=== PATIENT | male | born 1990 | race Caucasian/White ===

== ENCOUNTER → 2022-12-18 13:15 | Outpatient (BNV) | payer SELFPAY | PROVIDERS: Visit Provider Psychiatry & Neurology Psychiatry | DX: F31.75 Bipolar disorder, in partial remission, most recent episode depressed (principal); R41.840 Attention and concentration deficit; F19.20 Other psychoactive substance dependence, uncomplicated | CPT/HCPCS: 90792; 99213 ==

== ENCOUNTER 2023-01-11 12:45 | Outpatient (RCR) | payer OTHER, SELFPAY ==
--- NOTE | 2022-12-18 10:16 | P.HPPSP_ITS ---
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 He is known to me. He has history of bipolar disorder with episodes of depression and hypomania, accompanied by classic symptoms. He was previously on Trileptal when I was seeing him at [facility] and did very well on it, up to 1200 mg and then was on no medications for several years with mood fluctuations. In July 2021 he decided that he would he needed help again and started looking for prescriber and was put on Vraylar, then Latuda, then Geodon and had side effects to all of a man with Geodon had S if agile spasms and difficulty eating and then on Zyprexa. He is currently on Zyprexa 7.5 mg on which he feels a little sedated. In 2018 he was on lithium on which he did very well but had a lot of tremor and acne. He has had 1 hospitalization in 2018. He did useKratom, occasional cocaine and marijuana as a way of self medicating but he recently stopped everything except the marijuana which he is decreasing and stopping. No suicidal history. He does have history of self-destructive behaviors such as punching himself, hitting himself. Past Psychiatric History: Outpatient and 1 inpatient hospitalization. He currently sees his therapist of many years PMFSH Narrative: Scoliosis Family History: Positive for probable bipolar disorder in his mother who was in 2017 and a brother who committed suicide in 2011 Social History: Guillermo is 1 of 2 siblings. His mother is and his father is living and he lives with him. He denies any history of abuse growing up. He dropped out of 10th grade but has his GED. He currently works at a [employer]. No marriages and no children. Substance History: Marijuana,kratom and occasional cocaine Trauma History: None Meds/Allergies Allergies Allergies Allergy/AdvReac Type Severity Reaction Status Date / Time amoxicillin Allergy Mild Rash Verified 12/18/22 09:56 Mental Status Exam Mental Status Exam Narrative: In today's visit he is alert, oriented and well kempt. Speech is normal. Good eye contact. Affect is appropriate and varied. No signs of psychosis. No mood instability. Cognitively is intact. No suicidal homicidal ideations. Judgment is intact Assessment & Plan Assessment & Plan (1) Bipolar 1 disorder: Status: Acute Code(s): F31.9 - Bipolar disorder, unspecified Plan Been meets criteria for partial hospitalization which he will continue. We decided upon switching him back to Trileptal which he will initiate at 150 mg and increase every 2 or 3 nights to 600 mg. Previously he was on up to 1200 mg. He will be revaluated on 600 mg and at that point he can probably stop the Zyprexa. A 1 month prescription was sent to his pharmacy Patient educated on: diagnosis, medication risk/benefits and substance abuse Certification I certify that partial hospital treatment is medically necessary due to the symptoms and problems resulting from the patient's mental illness and the failure to treat the patient at the partial hospital level of care would likely result in the patient requiring inpatient psychiatric care which could not be prevented at a less intensive level of care. Time Spent With Patient Time: Total time managing care of this patient today ____ minutes.
[2022-12-18 10:46] VITALS: BP 123/72; PULSE 68; TEMP 37.4
[2022-12-18 10:48] VITALS: BMI 21.4
--- NOTE | 2022-12-18 11:35 | PC.ADMIT ---
Patient is a 32 year old male who was referred to [facility] by his therapist d/t increased depression and history of poly substance use. He holds a dx of Bipolar II d/o. Patent has a history of opiate, cocaine, caffeine, benzodiazapine, ETOH, and marijuana use. He reports he relapsed and stated, Goal is to be psychoactive substance free . He stated he told his boss about the relapse. Stated he is dealing with a lot of personal things. He is taking a leave of absence from work to work on his mental health and substance issues. Patient is alert and oriented x4. Calm and cooperative. His thoughts are clear and goal oriented. Patient reports passive SI stating, Many days I don't want to live what I'm living through . Denied plan or intent to kill himself. He was given a copy of his safety plan if needed and I reviewed the plan with him. Medications reconciled with patient and his pharmacy. he reports he is taking medications as prescribed.
--- NOTE | 2022-12-23 11:33 | HO.PHP ---
[facility] staff contacted Kei's OP therapist, Dr. Leon Mari. [facility] staff member left a voice message for him stating when Kei started the program, when he'll be discharging, and how he is doing within the group setting. [facility] staff member encouraged him to contact her if he has any additional questions.
--- NOTE | 2022-12-24 16:55 | HO.PHP ---
Clients case was reviewed and opened today in treatment team.
--- NOTE | 2022-12-25 12:25 | HO.PHPPROGNO ---
Subjective Subjective Date of Service: 12/25/22 Reason For Visit: bipolar,opiate abuse Interim History: This is a follow-up visit with been who has started the Trileptal and will be going to 600 mg and has stopped Zyprexa as previously discussed. He also has stopped Ativan as of last week and today is the 7th day. No signs of withdrawals. Questions about Trileptal discussed. A prescription for the new dose was sent in for the Trileptal. Review of Systems Review of Systems Yes all other systems are reviewed and are negative Mental Status Exam Mental Status Exam Narrative: In today's visit he is alert, oriented and well kempt. Speech is normal. Good eye contact. Affect is appropriate and varied. No signs of psychosis. No mood instability. Cognitively is intact. No suicidal homicidal ideations. Judgment is intact Diagnostics Vital Signs (24Hr): BMI result Body Mass Index 21.4 Assessment & Plan Assessment & Plan (1) Bipolar 1 disorder: Status: Acute Code(s): F31.9 - Bipolar disorder, unspecified Plan Increase Trileptal to 900 mg. Discontinue Zyprexa and Ativan (he stopped 7 days ago) Patient educated on: medication risk/benefits Certification I certify that partial hospital treatment is medically necessary due to the symptoms and problems resulting from the patient's mental illness and the failure to treat the patient at the partial hospital level of care would likely result in the patient requiring inpatient psychiatric care which could not be prevented at a less intensive level of care. Total time managing care of this patient today ____ minutes. Discharge Plan Discharge Attending provider: Farrukh Espinosa Additional Instructions: Kei's next OP therapy appointment with Dr. Mari is on January 13, 2023 at 5:30 PM. Medications: New nicotine (polacrilex) [Nicorette] 2 mg gum 2 mg buccal Q2H PRN (Reason: nicotine cravings) Qty: 110 0RF Changed oxcarbazepine [Trileptal] 300 mg tablet 900 mg PO BEDTIME Qty: 90 0RF No Action olanzapine 7.5 mg tablet 7.5 mg PO BEDTIME pantoprazole 20 mg tablet,delayed release (DR/EC) 20 mg PO DAILY lorazepam 0.5 mg tablet 0.5 mg PO BID Stand Alone Forms: Patient Portal Discharge page
--- NOTE | 2022-12-30 10:27 | HO.PHPPROGNO ---
Subjective Subjective Date of Service: 12/30/22 Reason For Visit: bipolar,opiate abuse Interim History: As per PHP H and P 12/18/22: history of bipolar disorder with episodes of depression and hypomania, accompanied by classic symptoms. He was previously on Trileptal when I was seeing him at [facility] and did very well on it, up to 1200 mg and then was on no medications for several years with mood fluctuations. In July 2021 he decided that he would he needed help again and started looking for prescriber and was put on Vraylar, then Latuda, then Geodon and had side effects to all of a man with Geodon had S if agile spasms and difficulty eating and then on Zyprexa. He is currently on Zyprexa 7.5 mg on which he feels a little sedated. In 2018 he was on lithium on which he did very well but had a lot of tremor and acne. He has had 1 hospitalization in 2018. He did useKratom, occasional cocaine and marijuana as a way of self medicating but he recently stopped everything except the marijuana which he is decreasing and stopping. No suicidal history. He does have history of self-destructive behaviors such as punching himself, hitting himself. ...... switching him back to Trileptal which he will initiate at 150 mg and increase every 2 or 3 nights to 600 mg. Previously he was on up to 1200 mg. He will be revaluated on 600 mg and at that point he can probably stop the Zyprexa. A 1 month prescription was sent to his pharmacy Follow up 12/25/22: started the Trileptal and will be going to 600 mg and has stopped Zyprexa as previously discussed. He also has stopped Ativan as of last week and today is the 7th day. No signs of withdrawals. Questions about Trileptal discussed. A prescription for the new dose was sent in for the Trileptal (900mg).: Today: Patient reports that overall has been doing okay from a mood perspective. Has noticed that Trileptal 750 mg has been feeling slightly sedated or heavy with some GI upset and urinary hesitancy. Increase to 900 mg last night. No paranoia or overt psychosis. Does report having lots of thoughts and images that run through his mind. Very clear he is not suicidal and spoke about his brother committing suicide. Does talk about memory and focus, issues throughout the years and how he tends to process things slowly and we did discuss neuropsych testing might be helpful in the future. Also acknowledges that he has been without opiates and caffeine for 1 month and does not want to have medications increased simply because he is now without substances. We discussed various strategies which could include maintaining Trileptal 900 mg, giving body time to adjust to same in the context of him previously being able to tolerate 1200 mg. Other option was lowering Trileptal to 600 mg and utilizing low-dose olanzapine, having stopped olanzapine 7.5 mg approximately 1 week ago due to feeling sedated. Prefer to maintain Trileptal 900 mg and follow-up again next week. Medication Compliance: Yes Side effects from medications: No Attending Groups: Yes Review of Systems Acute medical concerns: No Mental Status Exam Mental Status Exam Narrative: Pleasant. Engaged. Fairly presented. Organized. Largely euthymic. No SI. No HI. No agitation. No psychosis. Insight and judgment fair Diagnostics Vital Signs (24Hr): BMI result Body Mass Index 21.4 Assessment & Plan Assessment & Plan (1) Bipolar 1 disorder: Status: Acute Code(s): F31.9 - Bipolar disorder, unspecified Plan Patient reports that overall has been doing okay from a mood perspective. Has noticed that Trileptal 750 mg has been feeling slightly sedated or heavy with some GI upset and urinary hesitancy. Increase to 900 mg last night. We discussed various strategies which could include maintaining Trileptal 900 mg, giving body time to adjust to same in the context of him previously being able to tolerate 1200 mg. Other option was lowering Trileptal to 600 mg and utilizing low-dose olanzapine, having stopped olanzapine 7.5 mg approximately 1 week ago due to feeling sedated. Prefer to maintain Trileptal 900 mg and follow-up again next week. Patient educated on: medication risk/benefits Informed Consent: understands Reason for contiued partial hosp. stay Substantial Risk for: med/psych decompensation Certification I certify that partial hospital treatment is medically necessary due to the symptoms and problems resulting from the patient's mental illness and the failure to treat the patient at the partial hospital level of care would likely result in the patient requiring inpatient psychiatric care which could not be prevented at a less intensive level of care. Total time managing care of this patient today __20__ minutes. Discharge Plan Discharge Attending provider: Farrukh Espinosa Additional Instructions: Kei's next OP therapy appointment with Dr. Mari is on January 13, 2023 at 5:30 PM. Medications: New nicotine (polacrilex) [Nicorette] 2 mg gum 2 mg buccal Q2H PRN (Reason: nicotine cravings) Qty: 110 0RF Changed oxcarbazepine [Trileptal] 300 mg tablet 900 mg PO BEDTIME Qty: 90 0RF No Action olanzapine 7.5 mg tablet 7.5 mg PO BEDTIME pantoprazole 20 mg tablet,delayed release (DR/EC) 20 mg PO DAILY lorazepam 0.5 mg tablet 0.5 mg PO BID Stand Alone Forms: Patient Portal Discharge page Telehealth Telehealth Location of provider rendering services: other ([place]) Location of patient: other ([facility]) Telehealth method: video Patient verbally consented to treatment: Yes Minutes spent on Phone/Video with Pt.: 15
--- NOTE | 2023-01-01 16:41 | HO.PHP ---
[facility] staff member followed up with Kei at the end of the day to inform him that she was able to extend his time within the program by 6 additional days. Kei was receptive. [facility] staff explored with Kei how he is doing compared to this morning. Kei expressed feeling the same. [facility] staff assessed for safety, in which he noted having suicidal thoughts without a plan or intent. Kei had voiced what his thoughts are and how he has a vivid imagination. Kei talked about his anxiety and how he struggles with eating, which then gives him cravings to utilize substances. PHP staff explored why he struggles with eating. Kei had noted that he has a hard time with reflux along with pain in his stomach. [facility] staff asked Kei if he has a GI. Kei mentioned he was supposed to meet with a GI but his insurance discontinued. Kei disclosed that he will follow up with the doctor. [facility] staff was receptive. Kei talked about contacting his work place and is worried about being triggered by what is said to him. Kei voiced concerns around rumminating on what was said which then leads to the suicidal thoughts. [facility] addressed safety again, in which he reassured the PHP staff that they are just thoughts and he has no plan and intent to act.[facility] staff was receptive and provided him with the crisis line, in which Kei programed into his phone. Kei shared with the clinician his plans for the weekend are to lift weights and go to the gym. Kei informed the clinician that he will see her on Wednesday.
--- NOTE | 2023-01-01 18:13 | HO.PHP ---
PHP staff followed up with Kei to see how he is managing the phone call to his work place. Kei disclosed it went well and the HR individual was pleasant. Kei disclosed that he took 1MG of Ativan before he called his work place but after phone call was experiencing symptoms a dizziness and vomitting. Kei expressed that he believes it is because he took 1MG in the morning and another 1MG in afternoon. PHP staff explored with Kei if that is how the medication is prescribed to him. Kei disclosed it is not, it's prescribed as .5MG 2 times a day. PHP staff encouraged him if symptoms get worse, to go to the local ER. Kei voiced that he would but noted it is improving after he smoked. PHP staff also suggested that he takes his medication as prescribed. Kei was in agreement. PHP staff expressed that she is aware he was worried about being triggered by the phone call and assessed safety. Kei disclosed he has no current SI,plan or intent and is feelilng safe. Kei appreciated PHP staff following up. Kei disclosed he will see the PHP staff on Wednesday.
--- NOTE | 2023-01-05 12:28 | P.PNPSP_ITS ---
Subjective Subjective Date of Service: 01/05/23 Reason For Visit: bipolar,opiate abuse Interim History: Patient was seen for a follow-up today. last seen for follow up on 12/30 ?It?s hard to feel well, dealing with both things - the mental problems and addiction as well as physically feeling crummy all the time? he reports feeling tired often, due to Trlipetal as well as chronic pain issues (including scoliosis which makes it difficult for him to sit or stay still for long periods due to lumbar back spasms) as well as just generally feeling ?crummy? he contributes some of this to post withdrawal syndrome from long- standing polysubstance use and opioid addiction in past, more recently transitioning to Kratom addiction, and he suspects his body need some time to adjust.. He had been regularly using Kratom on and off earlier in the year, with an extended period of sobriety until relapsing a couple of momnths ago. He has been sober now for almost 6 weeks. He reports this was his drug of choice due to its pain relief effects aside from the euphoria. he has noted an exacerbation in GI problems with titration of Trileptal specifically abdominal cramping pain and loose stools particularly with eating. he did not have any of these issues at 600 mg daily but worsened with titrating to 900 mg where he has been for the past couple of days. GI problems are long- standing and he had a referral to gastro doctor through his primary care doctor back in August but had lost his insurance and appointment was canceled He denies any issues with hypomania or johnson, reported mood is low but stable, no fluctuations. He was previously at 1200 mg of Trileptal when he was younger which apparently he tolerated though he suspects this was due to high caffeine abuse at the time. Mental Status Exam Mental Status Exam Narrative: Pleasant, agreeable, casually dressed, thin, fair grooming. Appears tired but alert and oriented x3. Speech normal without dysarthria. Eye contact approrp iate. Mood alright but I get sad alot affect constricted with moments of brightening. Thought process intact, content related to stressors and physical problems, no delusional content. No evidence of psychosis. Cognition intact. Insight, judgment good. Diagnostics Vital Signs (24Hr): BMI result Body Mass Index 21.4 Assessment & Plan Assessment & Plan (1) Bipolar 1 disorder: Status: Acute Code(s): F31.9 - Bipolar disorder, unspecified Assessment and Plan: we discussed options for addressing low mood/energy/focus, possibly with bupropion however concern that bupropion might further exacerbate GI issues or worsen appetite. GIven there is no evidence of johnson, irritability or agitation, we will try lowering the dose (at leasat temporarily to see if gut symptoms i mprove). Chronic pain issues seem to be driving force behind heavy opioid use/ addiction, which in turn further complicates GI symtoms and pain. I have encouraged patient to take a more proactive approach to addressing his long standing medical problems (particularly the scoliosis). He agrees to reach out to PCP to inquire about GI referral or GI office phone number as well as request PT referral for back issues. Other med consideration include mirtazapine to help with appetite, however energy is already low. also antidepressant in bipolar would warrant a conservative appraoch, particularly if Bipolar I dx is accurate. However, per patient, it's not clear previous manic symptoms occurred outside context of substance use, reportedly substance abuse has been chronic and predates these manic episodes Plan Return dose of Trileptal to 750 mg/d for now. Try splitting 150 in AM and 600 mg qhs for improved tolerance continue lorazepam prn restart pantoprazole as prescribed by his PCP back in August. Cant recall if it was helpful. Certification I certify that partial hospital treatment is medically necessary due to the symptoms and problems resulting from the patient's mental illness and the failure to treat the patient at the partial hospital level of care would likely result in the patient requiring inpatient psychiatric care which could not be prevented at a less intensive level of care. Total time managing care of this patient today _30___ minutes. Discharge Plan Discharge Attending provider: Farrukh Espinosa Additional Instructions: Kei's next OP therapy appointment with Dr. Mari is on January 13, 2023 at 5:30 PM. Medications: New nicotine (polacrilex) [Nicorette] 2 mg gum 2 mg buccal Q2H PRN (Reason: nicotine cravings) Qty: 110 0RF Changed oxcarbazepine [Trileptal] 300 mg tablet 900 mg PO BEDTIME Qty: 90 0RF No Action olanzapine 7.5 mg tablet 7.5 mg PO BEDTIME pantoprazole 20 mg tablet,delayed release (DR/EC) 20 mg PO DAILY lorazepam 0.5 mg tablet 0.5 mg PO BID Stand Alone Forms: Patient Portal Discharge page
--- NOTE | 2023-01-06 13:03 | HO.PHP ---
[facility] staff met with Kei after the second group due to him presenting as sad. Kei talked about his thoughts and feeling consumed by them at times. Kei noted he has been acting on compulsive behaviors to try to get relief of watching pornography and drinking caffeine. Kei also discussed his work and feeling stressed in regards to that and stated he feels he does not function like normal people. Kei mentioned he struggles to complete tasks and feels his thoughts are winning. Kei talked about wanting to continue treatment in sobriety. Kei inquired about IOP for substance use, in which we contacted [facility] together to place a referral. [facility] noted they will reach back out to check if his insurance is accepted. [facility] staff and Kei were receptive.
--- NOTE | 2023-01-06 15:28 | HO.PHP ---
[facility] staff followed up with Kei at the end of the day to inform him that she received a phone call back stating his insurance is accepted at [facility]. [facility] staff also followed up with Kei around his overall mood. Kei noted that he is starting to feel better now that he knows he is going home. Kei did mention he has a lot of thoughts but is unaware of where to start. [facility] clincian encouraged Kei to write down his thoughts so that he can better organize what he would like to discuss tomorrow in group or with [facility] staff member. Kei was receptive. Kei and [facility] staff contacted [facility], in which Kei spoke to shekhar and scheduled an intake appointment for 01/12/23 at 11 AM. [facility] program also mentioned that they provide transportation for them through [email or web address] or [employer]. Kei was receptive. Kei is looking forward to continuing in substance treatment. Kei reported he is feeling safe and disclosed no SI,plan or intent. Kei noted that he will be in program tomorrow. [facility] staff was receptive.
--- NOTE | 2023-01-07 15:42 | P.PNPSP_ITS ---
Subjective Subjective Date of Service: 01/07/23 Reason For Visit: bipolar,opiate abuse Interim History: Patient still struggling with poor sleep, poor appetite and low mood. He complains of feeling scattered, thoughts bouncing around and just feeling like he gets nowhere. Cant focus, difficulty staying motivated or even when he starts tasks, he has trouble completing, and generally struggles with ADHD symptoms. Feels he is far underperforms as compared to his potential and this brings up a lot of feelings of regret and feeling he is just wasting his life. Nonetheless the GI issues (stomach cramping and loose stools) further complicates his eating, appetite is already poor. We agree to try addressing the GI issues as well as appetite and once he is eating and sleeping better, we can discuss possibly starting a stimulant, which at this point would likely be difficult to tolerate if he is not eating and sleeping well. Mental Status Exam Mental Status Exam Narrative: Pleasant, agreeable, casually dressed, thin, fair grooming. Appears tired but alert and oriented x3. Speech normal. Eye contact approrpiate. Mood dysthymic, affect constricted with moments of brightening. Thought process intact, content related to stressors and physical problems, no delusional content. No evidence of psychosis. Cognition intact. Insight, judgment good. Diagnostics Vital Signs (24Hr): BMI result Body Mass Index 21.4 Assessment & Plan Assessment & Plan (1) Bipolar affective disorder, depressed in partial remission: Status: Acute Code(s): F31.75 - Bipolar disorder, in partial remission, most recent episode depressed (2) Attention and concentration deficit: Status: Acute Code(s): R41.840 - Attention and concentration deficit (3) Polysubstance (including opioids) dependence with physiological dependence: Status: Acute Code(s): F19.20 - Other psychoactive substance dependence, uncomplicated Plan Start mirtazapine 7.5 mg (1/2 tablet 15 mg tablet) daily at bedtime for the next week to target low mood, poor appetite, sleep. Will f/u next week see if pt is tolerating before considering increasing to 15 mg. Pt instrcuted on s/s of feeling overactivated from medicationin light of bipolar disorder Will start on dicyclomine 20 mg BID prn Patient educated on: diagnosis and medication risk/benefits Informed Consent: understands Certification I certify that partial hospital treatment is medically necessary due to the symptoms and problems resulting from the patient's mental illness and the failure to treat the patient at the partial hospital level of care would likely result in the patient requiring inpatient psychiatric care which could not be prevented at a less intensive level of care. Total time managing care of this patient today __30__ minutes. Discharge Plan Discharge Attending provider: Farrukh Espinosa Additional Instructions: Kei's next OP therapy appointment with Dr. Mari is on January 23, 2023 at 11:30 AM. Kei's has a med provider, Kaleb Ybarra, in which his next appointment is scheduled for January 18, 2023 at 5 PM. Kei will be continuing with Substance treatment through [facility], in which he has a scheduled intake on January 12, 2023 at 11 AM. Medications: New nicotine (polacrilex) [Nicorette] 2 mg gum 2 mg buccal Q2H PRN (Reason: nicotine cravings) Qty: 110 0RF mirtazapine 15 mg tablet See Rx Instructions .ROUTE .COMPLEX 15 Days Qty: 20 0RF Rx Instructions: take 1/2 tablet po daily at bedtime for a week, then increase dose to 1 tablet po daily at bedtime Continued dicyclomine 20 mg tablet 20 mg PO BID PRN (Reason: abdominal pain) Qty: 60 0RF Changed oxcarbazepine [Trileptal] 300 mg tablet 900 mg PO BEDTIME Qty: 90 0RF No Action olanzapine 7.5 mg tablet 7.5 mg PO BEDTIME pantoprazole 20 mg tablet,delayed release (DR/EC) 20 mg PO DAILY lorazepam 0.5 mg tablet 0.5 mg PO BID Stand Alone Forms: Patient Portal Discharge page Patient Education: Bipolar Disorder (DC)
--- NOTE | 2023-01-11 16:08 | P.PNPSP_ITS ---
Subjective Subjective Date of Service: 01/11/23 Reason For Visit: bipolar,opiate abuse Interim History: Patient was seen today for discharge. No acute issues or complaints. Overall reports some improvement in mood since starting at the program. He was started back on Trileptal which was increased to 900 mg but then was lowered to 750 mg due to GI compaints from rapid titration. We allowed him some time to adjust to the medication and then returned the dose to 900 mg in order to start on an antidepressant. He reports doing okay with mirtazapine. He notices some improvement with appetite and sleep and even reports feeling his mood is a little improved over the past few days. He continues on dicyclomine for IBS which has been helpful. He was really looking forward to addressing the ADHD issues but unfortunately he is at the end of his stay in the program and we were unable to address this, mostly hindered by poor appetite, GI complaints which we had to address first and have had some evidence of improvement with since starting mirtazapine and dicyclomine, respectively. He has an upcoming appointment with his regular provider next week. He was encouraged to give my name and PHP phone number to his provider. He is also slated for an intake appointment with [facility] tomorrow and will be transitioning there for continued substance abuse treatment. He was encouraged to focus on recovery for now, and at some point when he has been further along in his recovery, and remains psychiatrically stable, this may be a good time to see about getting a referral for neuropsychological testing for ADHD. He reports mood is good today, though anxious about leaving but looking forward to continued treatment. He denies any thoughts of giving up on life, no thoughts of SIB/SI or HI. No evidence of psychosis. Medication Compliance: Yes Side effects from medications: No Attending Groups: Yes Mental Status Exam Mental Status Exam Narrative: Alert, oriented, in no acute distress. Pleasant, polite, reserved. Grooming fair. Speech normal without dysarthria. Eye contact appropriate. Mood dysthymic, affect constricted with moments of brightening. Thought process intact, content related to stressors and physical and cognitive/executive fxn problems, no delusional content. No evidence of psychosis. Cognition intact. Insight fair but adequate, judgment good. Diagnostics Vital Signs (24Hr): BMI result Body Mass Index 21.4 Assessment & Plan Assessment & Plan (1) Bipolar affective disorder, depressed, in remission: Status: Acute Code(s): F31.70 - Bipolar disorder, currently in remission, most recent episode unspecified (2) Attention and concentration deficit: Status: Acute Code(s): R41.840 - Attention and concentration deficit (3) Polysubstance (including opioids) dependence with physiological dependence: Status: Acute Code(s): F19.20 - Other psychoactive substance dependence, uncomplicated Plan Discharge from [facility]. WIll transition to [facility] for ongoing S.A. treatment Patient will follow-up with provider next week and therapist next month. Requesting refills on the Trileptal and Bentyl for now. Still at 1/2 tablet of Remeron for remainder of week and then can follow up with OP provider for further med management. Patient educated on: diagnosis and medication risk/benefits Informed Consent: understands Reason for contiued partial hosp. stay Substantial Risk for: stable for discharge Certification I certify that partial hospital treatment is medically necessary due to the symptoms and problems resulting from the patient's mental illness and the failure to treat the patient at the partial hospital level of care would likely result in the patient requiring inpatient psychiatric care which could not be prevented at a less intensive level of care. Total time managing care of this patient today __30__ minutes. Discharge Plan Discharge Attending provider: Farrukh Espinosa Additional Instructions: Kei's next OP therapy appointment with Dr. Mari is on January 23, 2023 at 11:30 AM. Kei's has a med provider, Kaleb Ybarra, in which his next appointment is scheduled for January 18, 2023 at 5 PM. Kei will be continuing with Substance treatment through [facility], in which he has a scheduled intake on January 12, 2023 at 11 AM. Medications: New nicotine (polacrilex) [Nicorette] 2 mg gum 2 mg buccal Q2H PRN (Reason: nicotine cravings) Qty: 110 0RF mirtazapine 15 mg tablet See Rx Instructions .ROUTE .COMPLEX 15 Days Qty: 20 0RF Rx Instructions: take 1/2 tablet po daily at bedtime for a week, then increase dose to 1 tablet po daily at bedtime Continued dicyclomine 20 mg tablet 20 mg PO BID PRN (Reason: abdominal pain) Qty: 60 0RF Changed oxcarbazepine [Trileptal] 300 mg tablet 900 mg PO BEDTIME Qty: 90 0RF No Action olanzapine 7.5 mg tablet 7.5 mg PO BEDTIME pantoprazole 20 mg tablet,delayed release (DR/EC) 20 mg PO DAILY lorazepam 0.5 mg tablet 0.5 mg PO BID Stand Alone Forms: Patient Portal Discharge page Patient Education: Bipolar Disorder (DC) Telehealth Telehealth Location of provider rendering services: other (private office) Location of patient: other ([facility]) Patient Identification confirmed using: Name, : Yes Telehealth method: video Minutes spent on Phone/Video with Pt.: 30
== END 2023-01-11 23:59 | disposition home or self-care (01) ==
LOC: HO.PHPA 12:45
PROVIDERS: Visit Provider Psychiatry & Neurology Psychiatry
DX: F31.9 Bipolar disorder, unspecified (principal); Z79.899 Other long term (current) drug therapy
CPT/HCPCS: 90791; 90853